=== PATIENT | female | born 1985 | race Two or more races ===

== ENCOUNTER 2020-01-22 01:22 | Emergency (ER) | payer MEDICAID ==
[~2020-01-22] VITALS: Ht 167.6 cm; Wt 88.6 kg
[2020-01-22 02:46] VITALS: BP 121/88
== END 2020-01-22 04:27 | disposition home or self-care (01) ==
LOC: EMS 01:22
DX: J02.9 Acute pharyngitis, unspecified (principal); R20.0 Anesthesia of skin
CPT/HCPCS: 87430